=== PATIENT | female | born 1995 | race Caucasian/White ===

== ENCOUNTER → 2019-12-08 16:25 | Outpatient (BNVA) | payer BC, SELFPAY | PROVIDERS: Family Provider Internal Medicine; PCP Family Medicine; Visit Provider Obstetrics & Gynecology | DX: Z30.9 Encounter for contraceptive management, unspecified (principal); Z12.4 Encounter for screening for malignant neoplasm of cervix; Z11.3 Encounter for screening for infections with a predominantly sexual mode of transmission; Z30.433 Encounter for removal and reinsertion of intrauterine contraceptive device | CPT/HCPCS: 86592; 87340; 87491; 87591; 87806; 88175 ==

== ENCOUNTER → 2019-12-09 00:01 | Outpatient (BNVA) | payer BC, SELFPAY | PROVIDERS: Family Provider Internal Medicine; PCP Family Medicine; Visit Provider Obstetrics & Gynecology | DX: Z30.9 Encounter for contraceptive management, unspecified (principal); Z12.4 Encounter for screening for malignant neoplasm of cervix; Z11.3 Encounter for screening for infections with a predominantly sexual mode of transmission; Z30.433 Encounter for removal and reinsertion of intrauterine contraceptive device; B19.20 Unspecified viral hepatitis C without hepatic coma | CPT/HCPCS: 87522 ==

== ENCOUNTER → 2019-12-23 13:43 | Outpatient (BNVA) | payer BC, SELFPAY | PROVIDERS: Family Provider Internal Medicine; PCP Family Medicine; Visit Provider Obstetrics & Gynecology | DX: R87.611 Atypical squamous cells cannot exclude high grade squamous intraepithelial lesion on cytologic smear of cervix (ASC-H) (principal) | CPT/HCPCS: 81025 ==

== ENCOUNTER → 2019-12-24 10:00 | Outpatient (BNVA) | payer BC, OTHER, SELFPAY | PROVIDERS: Family Provider Internal Medicine; PCP Family Medicine; Visit Provider Obstetrics & Gynecology | DX: R87.611 Atypical squamous cells cannot exclude high grade squamous intraepithelial lesion on cytologic smear of cervix (ASC-H) (principal); F17.210 Nicotine dependence, cigarettes, uncomplicated | CPT/HCPCS: 88305 ==

== ENCOUNTER → 2020-10-31 09:35 | Outpatient (BNVA) | payer BC, SELFPAY | PROVIDERS: Family Provider Internal Medicine; PCP Family Medicine; Visit Provider Obstetrics & Gynecology | DX: R87.611 Atypical squamous cells cannot exclude high grade squamous intraepithelial lesion on cytologic smear of cervix (ASC-H) (principal) | CPT/HCPCS: 88175 ==

== ENCOUNTER → 2020-11-08 11:43 | Outpatient (BNVA) | payer BC, SELFPAY | PROVIDERS: Family Provider Internal Medicine; PCP Family Medicine; Visit Provider Obstetrics & Gynecology | DX: R87.611 Atypical squamous cells cannot exclude high grade squamous intraepithelial lesion on cytologic smear of cervix (ASC-H) (principal) | CPT/HCPCS: 81025; 88305 ==

== ENCOUNTER → 2021-01-18 09:10 | Outpatient (BNVA) | payer BC, SELFPAY | PROVIDERS: Family Provider Internal Medicine; PCP Family Medicine; Visit Provider Obstetrics & Gynecology | DX: N87.1 Moderate cervical dysplasia (principal); G89.18 Other acute postprocedural pain | CPT/HCPCS: 81025; 88305; 88307 ==

== ENCOUNTER → 2021-05-24 10:12 | Outpatient (BNVA) | payer BC, SELFPAY | PROVIDERS: Family Provider Internal Medicine; PCP Family Medicine; Visit Provider Nurse Practitioner Women's Health | DX: N92.6 Irregular menstruation, unspecified (principal); N87.1 Moderate cervical dysplasia | CPT/HCPCS: 81025 ==

== ENCOUNTER → 2021-06-06 11:49 | Outpatient (BNVA) | payer BC, SELFPAY | PROVIDERS: Family Provider Internal Medicine; Visit Provider Obstetrics & Gynecology | DX: O09.899 Supervision of other high risk pregnancies, unspecified trimester (principal); Z3A.00 Weeks of gestation of pregnancy not specified | CPT/HCPCS: 80307; 84315; 85027; 86592; 86762; 86803; 86850; 86900; 87086; 87340; 87491; 87522; 87591; 87806 ==

== ENCOUNTER → 2021-07-11 11:26 | Outpatient (BNVA) | payer BC, SELFPAY | PROVIDERS: Family Provider Internal Medicine; Visit Provider Nurse Practitioner Women's Health | DX: O09.899 Supervision of other high risk pregnancies, unspecified trimester (principal); Z3A.00 Weeks of gestation of pregnancy not specified | CPT/HCPCS: 82105; 84315 ==

== ENCOUNTER → 2021-07-21 09:37 | Outpatient (BNVA) | payer BC, SELFPAY | PROVIDERS: Family Provider Internal Medicine; Visit Provider Obstetrics & Gynecology | DX: Z36.86 Encounter for antenatal screening for cervical length (principal); Z98.890 Other specified postprocedural states | CPT/HCPCS: 76817 ==

== ENCOUNTER → 2021-10-02 09:35 | Outpatient (BNVA) | payer BC, SELFPAY | PROVIDERS: Family Provider Internal Medicine; Visit Provider Obstetrics & Gynecology | DX: O09.899 Supervision of other high risk pregnancies, unspecified trimester (principal); Z3A.00 Weeks of gestation of pregnancy not specified | CPT/HCPCS: 82950; 84315; 85027 ==

== ENCOUNTER → 2021-11-27 09:37 | Outpatient (BNVA) | payer BC, SELFPAY | PROVIDERS: Family Provider Internal Medicine; Visit Provider Obstetrics & Gynecology | DX: Z34.90 Encounter for supervision of normal pregnancy, unspecified, unspecified trimester (principal) | CPT/HCPCS: 84315; 87081 ==

== ENCOUNTER 2021-12-15 16:15 | Inpatient (IN) | payer BC, SELFPAY ==
[2021-12-15] VITALS (50 sets, daily range): BP systolic 97–182; BP diastolic 50–122; PULSE 64–100; RESP 16–18; TEMP 36.1–36.8; O2SAT 87–100; BMI 36.4
[2021-12-15 16:09] LABS: Nitrazine Paper, PH Positive
[2021-12-15 16:14] LABS: Basophils % 0.3 %; Eosinophils # 0.1 10^3/uL (0.0-0.8); Eosinophils % 0.6 %; Hemoglobin 11.3 g/dL (11.5-15.3); Lymphocytes # 1.9 10^3/uL (0.8-4.8); Lymphocytes % 18.6 %; Mean Corpuscular HGB Conc 33.2 g/dL (30.0-36.0); Mean Corpuscular Hemoglobin 30.7 pg (28.0-34.0); Mean Corpuscular Volume 92.4 fl (81-99); Mean Platelet Volume 12.4 fL (7.4-10.4); Monocytes # 0.7 10^3/uL (0.2-0.9); Monocytes % 6.3 %; Neutrophils % 73.8 %; Nucleated Red Blood Cells % 0 %; Platelet Count 226 10^3/cmm (130-400); Red Blood Count 3.68 10^6/uL (4.1-5.3); Red Cell Distribution Width 13.2 % (12.1-15.1); White Blood Count 10.3 10^3/uL (4.0-10.0)
[2021-12-15] MEDS: oxytocin 30 UNIT/500 ML BAG IV (18:29)
[2021-12-15] MEDS: dextrose 5%-lactated ringers 1,000 ML 125 ML IV (18:29)
[2021-12-15] MEDS: lactated ringers 1,000 ML 999 ML IV (19:31)
--- NOTE | 2021-12-15 20:41 | ANES.PREANE2 ---
Pre-Anesthetic Assessment Height/Weight: Height 1.65 m Weight 99.337 kg Temp Pulse Resp BP Pulse Ox 97.0 F L 89 18 118/78 99 12/15/21 19:25 12/15/21 20:35 12/15/21 19:25 12/15/21 20:29 12/15/21 20:35 Familial anesthetic complications: None Was Beta Mark taken within 24 hours: N/A Was Clonidine taken within 24 hours: N/A Social No alcohol and No tobacco Exam alert, oriented x 3, clear to auscultation bilaterally and regular rate & rhythm Airway Submandibular: within normal limits Cervical ROM: within normal limits Mallampati: Class II Dentition: full CV/HEM Anemia Hepatic Hepatitis Anesthetic Plan ASA status: 2 Anesthesia: Regional (specify below) (labor epidural) Medications/Allergies Home Medications Medication Instructions Recorded Confirmed Last Taken Type prenat.vits,fouzia,jkn-igsj-yxpps 1 tab PO DAILY 05/24/21 12/15/21 12/15/21 11:00 History ferrous sulfate 325 mg (65 mg 325 mg PO BID #90 tab 10/03/21 12/15/21 12/15/21 11:00 Rx iron) tablet,delayed release breast pump (Pump In Style #1 ea 10/16/21 12/13/21 Unknown Rx Advanced) Allergies Allergy/AdvReac Type Severity Reaction Status Date / Time No Known Allergies Allergy Verified 12/13/21 10:29 Current Medications Generic Name Dose Route Start Last Admin Trade Name Freq PRN Reason Stop Dose Admin Dextrose/Lactated Ringer's 1,000 mls @ 125 mls/hr 12/15/21 16:00 12/15/21 18:29 Dextrose 5%-Lactated Ringers IV 125 mls/hr .Q8H YAMILKA Administration Lactated Ringer's 1,000 mls @ 999 mls/hr 12/15/21 15:54 12/15/21 19:31 Lactated Ringers IV 999 mls/hr .Q1H1M PRN Administration Per L&D Rescitation Protocol Oxytocin 30 unit in 500 mls @ 1 mls/hr 12/15/21 18:15 12/15/21 19:00 Pitocin IV 3 milliunit/min .Q24H YAMILKA 3 mls/hr Titration Protocol 1 MILLIUNIT/MIN Ropivacaine 200 mg in 100 mls @ 13 mls/hr 12/15/21 20:30 12/15/21 20:36 Naropin Premix EPIDURAL 13 mls/hr .Q7H42M YAMILKA Administration [facility] Anesthesia Medical History Cervical intraepithelial neoplasia grade 2 Depression Reports being diagnosed with depression at the age of 14 when she was hospitalized for suicidal ideation. She states that she has been on multiple antidepressants in the past and follows up with [facility]. She was placed on buspirone in her and did well with that. Is currently not taking anything but denies suicidal/homicidal ideation. No pertinent past medical history Denies: Asthma, hypertension, diabetes, seizures, DVT/PE. PMD: Dr. Floyd Unspecified viral hepatitis C without hepatic coma She was diagnosed with hepatitis C in 2018 and thinks it was secondary to an infected tattoo needle. She underwent 12 weeks of treatment under Dr. Floyd and states that she has some lab work and was told that she would be called if it was normal. She assumes she does not need any further follow-up. Surgical History Hx of tympanostomy At age 9 at time of tonsillectomy S/P tonsillectomy and adenoidectomy At age 9 Status post LEEP (loop electrosurgical excision procedure) of cervix 01/18/2021---office LEEP procedure performed for SAKINA-[address] Diallo at [facility] -----> pathology showed SAKINA-2 with negative margins. No malignancy. Post LEEP ECC benign with no dysplasia. Family History Mother Congestive heart failure Thyroid condition Family/Other Breast cancer Maternal aunt, diagnosed before age 50 Grandmother Breast cancer maternal, diagnosed between ages 45-50 Grandfather Heart disease paternal Lung cancer paternal Hypertension maternal Denies family history of Colon cancer Ovarian cancer Diabetes Hyperlipidemia Uterine cancer Stroke Female Reproductive History : 2 Data Anesthesia : 12/15/21 15:50 Short CBC 12/15/21 Range/Units 15:50 WBC 10.3 H (4.0-10.0) 10^3/uL Hgb 11.3 L (11.5-15.3) g/dL Hct 34.0 L (37.0-47.0) % MCV 92.4 (81-99) fl Plt Count 226 (130-400) 10^3/cmm Neut % (Auto) 73.8 % Neut # (Auto) 7.60 (1.8-7.7) 10^3/uL Cardiac Studies: No Data to Display Anesthesia Procedures Epidural Time Out Performed: Yes Consents Signed: Procedure Consent Consent: requested by attending/covering physician, from patient, risks and benefits reviewed and patient agrees to proceed Lumbar Level: L3-L4 Epidural position: sitting Epidural procedure: sterile prep of area, 1% lidocaine to numb the area, 18 g needle, neg for paresthesia, test dose given, 1.5% xylocaine 1:200k epi, placed PCEA, no systemic response, sterile dressing applied and 0.2% Ropiavacaine @ mls/hr (13) Additional Comments: CURT at 5cm, cath at 10cm, bolused 5mls of PF 2% lido
--- NOTE | 2021-12-15 22:08 | PM.OPHPUD ---
Labor & Delivery H&P Update Date of Procedure: December 15, 2021 Date H&P Performed: 12/13/21 H&P update information: I have reviewed H&P completed within last 30 days, I have examined patient prior to procedure and Changes to prior documentation as noted here Changes to previous documentation: The patient had PROM at about 1100 hours this morning. She is having irregular contractions Admission Diagnosis: @39 weeks
--- NOTE | 2021-12-15 22:10 | PM.DELIVERY ---
Delivery Note: Date of delivery: December 15, 2021 Pre-delivery diagnoses: iup at 39 weeks, PROM, Hep C antibody positive, anemia, echogenic foci in heart Post-delivery diagnoses: same-delivered Procedure: Delivering Physician: jennifer Estimated blood loss (mL): 10 Findings: term male in the ADRYAN presentation Pre-Delivery Course: The patient was admitted with PROM and irregular contractions. It had been 6 hours since ROM had occured. Pitocin was started. She had complete cervical dilation and pitocin was stopped. Delivery: The patient had complete cervical dilation and began to push. The head delivered in the ADRYAN position over an intact perineum under epidural anesthesia. The nose and mouth were bulb suctioned. The shoulders and body delivered atraumatically. The baby was placed onto the mother's abdomen. The cord was clamped and cut. Cord blood was obtained. The placenta delivered spontaneously. It was inspected and found to be intact. Inspection of the perineum revealed no repair was required. Estimated blood loss 10 mL. Apgars on baby were 8 at 1 minute and 9 at 5 minutes. Weight of baby is 6 pounds 14 ounces. Mother and baby were stable post delivery. History History History 2 Term 1 Miscarriages/Ectopic 0 0 Living Children 1 Coding Level of Care Code Acute Drill Operator Automatic for Chg Larissa
--- NOTE | 2021-12-15 22:11 | PM.OPHPUD ---
Labor & Delivery H&P Update Date of Procedure: December 15, 2021 Date H&P Performed: 12/13/21 Admission Diagnosis: Related Problem List Diagnoses (1) Anemia affecting in third trimester: (2) Echogenic intracardiac focus of fetus on ultrasound: (3) Unspecified viral hepatitis C without hepatic coma: (4) Supervision of other high-risk :
[2021-12-16] VITALS (19 sets, daily range): BP systolic 91–115; BP diastolic 50–74; PULSE 61–116; RESP 16–40; TEMP 36.4–36.9; O2SAT 96
[2021-12-16] MEDS: lanolin oint 7 gm 1 APPLIC TOPICAL (03:01)
[2021-12-16] MEDS: benzocaine-menthol 78 gm Canister 1 SPRAY TOPICAL (03:01)
--- NOTE | 2021-12-16 07:56 | PM.PN ---
Subjective Subjective: The patient is doing well this morning. No concerns Vitals/I&O/Wt Last Vital Signs Temp 97.5 F L 12/16/21 05:53 Pulse 61 12/16/21 05:32 Resp 17 12/16/21 05:53 BP 109/68 12/16/21 05:32 Pulse Ox 89 L 12/15/21 21:11 12/15/21 12/16/21 12/16/21 22:59 06:59 14:59 Intake Total 1484.317 / 9062.864 8009.683 / 2600.000 Output Total 1700 / 1700 Balance 1484.317 / 1484.317 -584.317 / 900.000 Weight last 48 hrs Weight 219 lb Physical Exam Const: COMMON NORMALS: no acute distress, patient oriented x3, no limitations, healthy appearing and alert GENERAL APPEARANCE: cooperative, comfortable, well kempt and well developed ORIENTATION/CONSCIOUSNESS: Yes awake, Yes oriented to person, Yes oriented to place and Yes oriented to time Resp: COMMON NORMALS: normal respiratory effort EFFORT & INSPECTION: Yes able to speak in complete sentences GI: COMMON NORMALS: Soft to palpation and non-tender PALPATION: Yes Soft to palpation Extremity: COMMON NORMALS: no calf tenderness Neuro: COMMON NORMALS: patient oriented x3 SENSORIUM/ORIENTATION: Yes alert, Yes oriented to person, Yes oriented to place and Yes oriented to time Psych: APPEARANCE: Yes well kempt Data : 12/15/21 15:50 Attestations Medical Necessity Statement*: The patient had a vaginal delivery. she will be here two midnights Coding Level of Care Code Acute Director Food And Beverage for Brian Dias
--- NOTE | 2021-12-16 08:37 | ANE.PACU2 ---
Inpatient post-anesthesia follow up: Airway intact: Yes Vital signs: Temperature 97.5 F Pulse Rate 61 Respiratory Rate 17 Blood Pressure 109/68 Pulse Oximetry 89 Oxygen Delivery Me thod Room Air Oxygen Flow Rate Fraction of Inspir ed Oxygen Hydration adequate: Yes Nausea and vomiting: No Pain level: 2 Mental status: Baseline
[2021-12-16] MEDS: ibuprofen 800 mg tablet PO ×3 (09:17→22:02)
[2021-12-16] MEDS: prenatal vitamin Capsule 1 CAP PO (09:17)
[2021-12-16] MEDS: docusate sodium 100 mg Capsule PO ×2 (09:17→17:07)
[2021-12-16 11:21] LABS: Hematocrit 32.2 % (37.0-47.0); Hemoglobin 10.6 g/dL (11.5-15.3); Mean Corpuscular HGB Conc 32.9 g/dL (30.0-36.0); Mean Corpuscular Hemoglobin 30.6 pg (28.0-34.0); Mean Corpuscular Volume 93.1 fl (81-99); Mean Platelet Volume 12.2 fL (7.4-10.4); Platelet Count 204 10^3/cmm (130-400); Red Blood Count 3.46 10^6/uL (4.1-5.3); Red Cell Distribution Width 13.4 % (12.1-15.1); White Blood Count 12.1 10^3/uL (4.0-10.0)
[2021-12-17 05:11] VITALS: BP 99/65; PULSE 69; RESP 15; TEMP 36.6
[2021-12-17 09:00] VITALS: BP 100/62; PULSE 69; RESP 15; TEMP 36.7
[2021-12-17] MEDS: prenatal vitamin Capsule 1 CAP PO (09:44)
[2021-12-17] MEDS: ibuprofen 800 mg tablet PO (09:44)
[2021-12-17] MEDS: docusate sodium 100 mg Capsule PO (09:45)
--- NOTE | 2021-12-17 11:49 | PM.DCS ---
Discharge Providers Date of Admission: 12/15/21 16:15 Date of Discharge: December 17, 2021 Attending Provider at Admission: Kina Doty MD Attending Provider at Discharge: Kina Doty MD Diagnoses at Discharge Discharge Diagnosis (1) Anemia affecting in third trimester: Status: Acute (2) Echogenic intracardiac focus of fetus on ultrasound: Status: Acute (3) Unspecified viral hepatitis C without hepatic coma: Status: Resolved Permanent problem details: She was diagnosed with hepatitis C in 2018 and thinks it was secondary to an infected tattoo needle. She underwent 12 weeks of treatment under Dr. Floyd and states that she has some lab work and was told that she would be called if it was normal. She assumes she does not need any further follow-up. (4) Supervision of other high-risk : Status: Acute Reason for Visit Reason for Visit: Possible ROM Hospital Course Hospital Course The patient was admitted for PROM. She had augmentation of labor. She had spontaneous delivery of a term male . She did well and was ready for discharge on day #2 Physical Exam Narrative: doing well this morning. No concerns Const: COMMON NORMALS: no acute distress, patient oriented x3, no limitations, healthy appearing, alert and well nourished GENERAL APPEARANCE: cooperative, comfortable, well kempt and well developed ORIENTATION/CONSCIOUSNESS: Yes awake, Yes oriented to person, Yes oriented to place and Yes oriented to time Resp: COMMON NORMALS: normal respiratory effort EFFORT & INSPECTION: Yes able to speak in complete sentences GI: COMMON NORMALS: Soft to palpation and non-tender PALPATION: Yes Soft to palpation Extremity: COMMON NORMALS: no calf tenderness Neuro: COMMON NORMALS: patient oriented x3 SENSORIUM/ORIENTATION: Yes alert, Yes oriented to person, Yes oriented to place and Yes oriented to time Psych: APPEARANCE: Yes well kempt Discharge Data Studies Completed and Pending Laboratory Results WBC 12.1 10^3/uL (4.0-10.0) H 12/16/21 11:00 RBC 3.46 10^6/uL (4.1-5.3) L 12/16/21 11:00 Hgb 10.6 g/dL (11.5-15.3) L 12/16/21 11:00 Hct 32.2 % (37.0-47.0) L 12/16/21 11:00 MCV 93.1 fl (81-99) 12/16/21 11:00 MCH 30.6 pg (28.0-34.0) 12/16/21 11:00 MCHC 32.9 g/dL (30.0-36.0) 12/16/21 11:00 RDW 13.4 % (12.1-15.1) 12/16/21 11:00 Plt Count 204 10^3/cmm (130-400) 12/16/21 11:00 MPV 12.2 fL (7.4-10.4) H 12/16/21 11:00 Neut % (Auto) 73.8 % 12/15/21 15:50 Lymph % (Auto) 18.6 % 12/15/21 15:50 [place] % (Auto) 6.3 % 12/15/21 15:50 Eos % (Auto) 0.6 % 12/15/21 15:50 Baso % (Auto) 0.3 % 12/15/21 15:50 Neut # (Auto) 7.60 10^3/uL (1.8-7.7) 12/15/21 15:50 Lymph # (Auto) 1.9 10^3/uL (0.8-4.8) 12/15/21 15:50 [place] # (Auto) 0.7 10^3/uL (0.2-0.9) 12/15/21 15:50 Eos # (Auto) 0.1 10^3/uL (0.0-0.8) 12/15/21 15:50 Baso # (Auto) 0.0 10^3/uL (0.0-0.1) 12/15/21 15:50 Nucleated RBC % (auto) 0 % 12/15/21 15:50 Nucleated RBCs # 0.0 /100WBC 12/15/21 15:50 Vitals Last Vital Signs Temp 98.0 F 12/17/21 09:00 Pulse 69 12/17/21 09:00 Resp 15 12/17/21 09:00 BP 100/62 12/17/21 09:00 Pulse Ox 96 12/16/21 23:10 Discharge Plan Discharge Patient Disposition: Home Condition: Stable Prescriptions: Continued prenat.vits,fouzia,[id number] Tablet 1 tab PO DAILY 0RF (DME) breast pump [Pump In Style Advanced] Device See Rx Instructions .ROUTE .MEDSUPPLY Qty: 1 0RF Rx Instructions: As directed ferrous sulfate 325 mg (65 mg iron) tablet,delayed release (DR/EC) 325 mg PO BID Qty: 90 2RF Discharge Orders: Discharge Order (Routine); Ordered 12/17/21 Ordered By: Kina Doty Patient Instructions: Depression (DC), Bleeding (DC), Preeclampsia and Eclampsia After Delivery (GEN), OB Discharge Report, OB Food/Drug Interaction Guide, Opioid Safety, OB Home Care, OB Vaginal Deliveries - [facility] Discharge Attestations Time Spent in Discharge Care*: less than 30 min Quality Metrics Clinical Quality Measures [ No reported AMI, CVA or VTE this stay] Coding Level of Care Code Acute Chg FW DC note Diagnoses Anemia affecting in third trimester O99.013 Echogenic intracardiac focus of fetus on ultrasound O28.3 Unspecified viral hepatitis C without hepatic coma B19.20 Supervision of other high-risk O09.899
[2021-12-17 13:02] VITALS: BP 135/71; PULSE 82; RESP 15; TEMP 36.7
== END 2021-12-17 13:03 | disposition home or self-care (01) | DRG 807 ==
LOC: OPOB 21:58 → OBGYN 21:58
PROVIDERS: Admitting Provider Obstetrics & Gynecology; Visit Provider Obstetrics & Gynecology
DX: O99.02 Anemia complicating childbirth (principal); Z37.0 Single live birth; D64.9 Anemia, unspecified; O99.344 Other mental disorders complicating childbirth; F32.A Depression, unspecified; Z3A.39 39 weeks gestation of pregnancy; Z86.19 Personal history of other infectious and parasitic diseases; Z87.891 Personal history of nicotine dependence
CPT/HCPCS: 36415; 59025; 59409; 83986; 85025; 85027; 98960; 99211; J2795

== ENCOUNTER → 2022-01-22 15:19 | Outpatient (BNVA) | payer BC, SELFPAY | PROVIDERS: Visit Provider Obstetrics & Gynecology | DX: Z12.4 Encounter for screening for malignant neoplasm of cervix (principal) | CPT/HCPCS: 88175 ==

== ENCOUNTER → 2022-12-17 09:58 | Outpatient (BNVA) | payer BC, SELFPAY | PROVIDERS: PCP Family Medicine; Visit Provider Nurse Practitioner Family | DX: R30.0 Dysuria (principal) | CPT/HCPCS: 81000 ==

== ENCOUNTER → 2023-01-09 15:00 | Outpatient (BNVA) | payer BC, SELFPAY | PROVIDERS: PCP Family Medicine; Visit Provider Obstetrics & Gynecology | DX: Z12.4 Encounter for screening for malignant neoplasm of cervix (principal) | CPT/HCPCS: 87624 ==

== ENCOUNTER → 2023-02-12 14:00 | Outpatient (BNVA) | payer BC, SELFPAY | PROVIDERS: PCP Family Medicine; Visit Provider Obstetrics & Gynecology | DX: Z32.00 Encounter for pregnancy test, result unknown (principal) | CPT/HCPCS: 81025 ==

== ENCOUNTER → 2023-02-27 09:29 | Outpatient (BNVA) | payer BC, SELFPAY | PROVIDERS: PCP Family Medicine; Visit Provider Obstetrics & Gynecology | DX: Z34.80 Encounter for supervision of other normal pregnancy, unspecified trimester (principal) | CPT/HCPCS: 76801; 80307; 84315; 87086 ==

== ENCOUNTER → 2023-03-26 14:20 | Outpatient (BNVA) | payer BC, SELFPAY | PROVIDERS: PCP Family Medicine; Visit Provider Obstetrics & Gynecology | DX: Z34.80 Encounter for supervision of other normal pregnancy, unspecified trimester (principal) | CPT/HCPCS: 80307; 84315; 85027; 86592; 86762; 86803; 86850; 86900; 87086; 87340; 87522; 87806 ==

== ENCOUNTER → 2023-04-17 10:34 | Outpatient (BNVA) | payer BC, SELFPAY | PROVIDERS: PCP Family Medicine; Visit Provider Nurse Practitioner Women's Health | DX: Z34.80 Encounter for supervision of other normal pregnancy, unspecified trimester (principal) | CPT/HCPCS: 84315; 87491; 87591; 88175 ==

== ENCOUNTER → 2023-05-14 14:05 | Outpatient (BNVA) | payer BC, SELFPAY | PROVIDERS: PCP Family Medicine; Visit Provider Nurse Practitioner Women's Health | DX: Z34.92 Encounter for supervision of normal pregnancy, unspecified, second trimester (principal); Z3A.21 21 weeks gestation of pregnancy | CPT/HCPCS: 76801 ==

== ENCOUNTER → 2023-07-10 13:41 | Outpatient (BNVA) | payer BC, SELFPAY | PROVIDERS: PCP Family Medicine; Visit Provider Obstetrics & Gynecology | DX: Z34.80 Encounter for supervision of other normal pregnancy, unspecified trimester (principal) | CPT/HCPCS: 82950; 84315; 85025 ==

== ENCOUNTER → 2023-09-04 13:51 | Outpatient (BNVA) | payer BC, SELFPAY | PROVIDERS: PCP Family Medicine; Visit Provider Obstetrics & Gynecology | DX: Z34.80 Encounter for supervision of other normal pregnancy, unspecified trimester (principal) | CPT/HCPCS: 84315; 87081 ==

== ENCOUNTER 2023-09-26 08:39 | Inpatient (IN) | payer BC, SELFPAY ==
[2023-09-26] VITALS (14 sets, daily range): BP systolic 102–134; BP diastolic 60–87; PULSE 70–83; RESP 15–16; TEMP 36.8–37.6; O2SAT 95–96; BMI 35.5
--- NOTE | 2023-09-26 08:51 | PM.DELIVERY ---
Delivery Note: Date of delivery: September 26, 2023 Pre-delivery diagnoses: Term Post-delivery diagnoses: Term delivered Procedure: Spontaneous vaginal Delivering Physician: Manuel Barajas MD Estimated blood loss (mL): 300 Delivery: The patient was noted to be complete and pushing, when she arrived to labor and delivery nunn. She was immediately brought to a delivery room. At [time] the patient delivered a viable term female weighing 3640 g with scores of 8 and 9 at one and five minutes, respectively. The vertex was delivered spontaneously over intact perineum. A nuchal cord was noted by nurse and delivered through it. Meconium was noted. The infant was noted to have spontaneous cry and spontaneous movement of all four extremities. The cord was clamped x 2 and cut and noted to have 2 arteries and one vein. The was passed to the mother's abdomen where nursing personnel were in attendance. Cord blood sample was then obtained. The placenta delivered intact spontaneously and the uterus was explored. 20 units of Pitocin was placed in the IV bag to firm the uterus. Examination of the cervix and vaginal vault did not reveal any lacerations. A vaginal pack was then placed. Examination of the perineum showed no laceration. The vaginal pack was then removed. The patient tolerated this procedure well, and recovered in L&D with her in their LDR room. All sponge and needle counts were correct. History History History 3 Term 2 0 Miscarriages/Ectopic 0 Living Children 2 A&P Assessment and plan (1) Term delivered: Plan and observation Coding Level of Care Code Acute Code for Chg Fwd Diagnoses Term delivered O80
[2023-09-26 10:04] LABS: Basophils % 0.2 %; Eosinophils # 0.1 10^3/uL (0.0-0.8); Eosinophils % 0.6 %; Hematocrit 33.9 % (36-47); Lymphocytes % 34.7 %; Mean Corpuscular HGB Conc 33.3 g/dL (30-55); Mean Corpuscular Hemoglobin 29.6 pg (27-33); Mean Corpuscular Volume 88.7 fl (85-98); Mean Platelet Volume 12.5 fL (7.4-10.4); Monocytes # 0.5 10^3/uL (0.2-0.9); Monocytes % 5.6 %; Neutrophils # 5.06 10^3/uL (1.8-7.7); Neutrophils % 58.1 %; Nucleated Red Blood Cells % 0 %; Platelet Count 231 10^3/cmm (157-399); Red Blood Count 3.82 10^6/uL (3.85-5.65); Red Cell Distribution Width 13.4 % (12.1-15.1); White Blood Count 8.72 10^3/uL (3.29-11.43)
--- NOTE | 2023-09-26 12:28 | PC.NURSE ---
This nurse was notified by registration that there was a patient in the parking lot that was pushing. This nurse arrived in the ER parking lot, patient was kneeling in a wheelchair that her was pushing towards the door, patients stated that her water had broke in the parking lot and was struggling not to push. Fluid was observed on patients pants and she verbalized that she needed to push. This nurse encouraged patient to continue to breathe and try to not push. We were met at the [facility] door by Dashawn Randall RN and proceeded to labor room. Patient transferred to the labor bed, was assisted to remove her pants, small crown was noted, Dashawn Randall RN verbally requested that the MD be notified, Ender Arauz RN proceeded to call Dr. Barajas, Patient stated that she needed to push, was encouraged to breathe and relax through the contractions. Dashawn Randall attempted to doppler FHTs, mother again stated that she was pushing and large crown was noted. Patient again bared down and infant head was delivered. Dashawn Randall noted nucal cord that was able to be reduced, then instructed patient to push, was delivered and placed on mothers abdomen
[2023-09-26] MEDS: ibuprofen 800 mg tablet PO ×2 (14:58→20:53)
[2023-09-26] MEDS: benzocaine-menthol 78 gm Canister 1 SPRAY TOPICAL (20:52)
[2023-09-26] MEDS: docusate sodium 100 mg Capsule PO (20:53)
[2023-09-26 21:12] LABS: Hematocrit 30.7 % (36-47); Mean Corpuscular HGB Conc 32.9 g/dL (30-55); Mean Corpuscular Hemoglobin 29.4 pg (27-33); Mean Corpuscular Volume 89.2 fl (85-98); Mean Platelet Volume 12.2 fL (7.4-10.4); Platelet Count 216 10^3/cmm (157-399); Red Blood Count 3.44 10^6/uL (3.85-5.65); Red Cell Distribution Width 13.4 % (12.1-15.1); White Blood Count 10.57 10^3/uL (3.29-11.43)
[2023-09-27 02:30] VITALS: BP 103/65; PULSE 75; RESP 16; TEMP 36.9; O2SAT 96
[2023-09-27 04:15] VITALS: BP 126/85; PULSE 65; RESP 16; TEMP 36.7; O2SAT 97
[2023-09-27] MEDS: lanolin oint 7 gm 1 APPLIC TOPICAL (04:32)
--- NOTE | 2023-09-27 09:37 | PM.OBGYPN ---
PUBLIC RELATIONS ACCOUNT EXECUTIVE Subjective Subjective: Interval history: no c/o no bleeding, pain eating, voiding, ambulating well caring for without any problems Labor: Amniotic Membrane Status: Ruptured Vitals/I&O/Wt Last Vital Signs Temp 98.1 F 09/27/23 04:15 Pulse 65 09/27/23 04:15 Resp 16 09/27/23 04:15 BP 126/85 09/27/23 04:15 Pulse Ox 97 09/27/23 04:15 O2 Del Method Room Air 09/27/23 04:15 Weight last 48 hrs Weight 220 lb Physical Exam Narrative: afebrile, VS normal comfortable, awake, alert Abd: soft, nontender. fundus firm Ext: no edema; nontender Data 09/26/23 20:40 A&P Assessment and plan (1) Vaginal delivery: PPD #1 vaginal delivery doing well discharge to home today instructions and precautions given call/return if fever, chills, headache, blurry vision, nausea, vomiting, abdominal pain; vaginal bleeding or discharge; shortness of breath, chest pain, leg pains or swelling; inability to void, perineal pain or swelling; feelings of depression or mood changes; thoughts of suicide or harming others; inability to care for baby. f/u in 6 weeks or PRN Attestations Medical Necessity Statement*: patient s/p vaginal delivery, plan to discharge to home today Coding Level of Care Code Acute Code for Chg Fwd Diagnoses Vaginal delivery O80 Time Spent (min) 20
--- NOTE | 2023-09-27 09:39 | P.DS_ITS ---
Discharge Providers SIGN WRITER LETTERER OR PAINTER Date of Admission: 09/26/23 08:39 Date of Discharge: 09/27/23 Attending Provider at Admission: Manuel Barajas MD Attending Provider at Discharge: Manuel Barajas MD Consults: none Primary SIGN WRITER LETTERER OR PAINTER: Chadwick Boykin MD Primary Care Provider: Day Reyna DO Diagnoses at Discharge Discharge Diagnosis (1) Vaginal delivery: Details from hospital stay: patient delivered outside in parking lot on arrival to hospital had normal course plan to discharge to home on PPD #1 Status: Acute Reason for Visit Reason for Visit: ROM Brief History: 28 y.o. at term with painful uterine con tractions Hospital Course Hospital Course patient delivered outside in parking lot on arrival to hospital had normal course plan to discharge to home on PPD #1 Information Peripartum Data: Infant Delivery Method: Vaginal Episiotomy description: None complications: none Physical Exam Narrative: afebrile, VS normal comfortable, awake, alert Abd: soft, nontender. fundus firm Ext: no edema; nontender History History History 3 Term 2 0 Miscarriages/Ectopic 0 Living Children 2 Discharge Data Studies Completed and Pending Laboratory Results WBC 10.57 10^3/uL (3.29-11.43) 09/26/23 20:40 RBC 3.44 10^6/uL (3.85-5.65) L 09/26/23 20:40 Hgb 10.10 g/dL (11.27-16.99) L 09/26/23 20:40 Hct 30.7 % (36-47) L 09/26/23 20:40 MCV 89.2 fl (85-98) 09/26/23 20:40 MCH 29.4 pg (27-33) 09/26/23 20:40 MCHC 32.9 g/dL (30-55) 09/26/23 20:40 RDW 13.4 % (12.1-15.1) 09/26/23 20:40 Plt Count 216 10^3/cmm (157-399) 09/26/23 20:40 MPV 12.2 fL (7.4-10.4) H 09/26/23 20:40 Neut % (Auto) 58.1 % 09/26/23 08:40 Lymph % (Auto) 34.7 % 09/26/23 08:40 [place] % (Auto) 5.6 % 09/26/23 08:40 Eos % (Auto) 0.6 % 09/26/23 08:40 Baso % (Auto) 0.2 % 09/26/23 08:40 Neut # (Auto) 5.06 10^3/uL (1.8-7.7) 09/26/23 08:40 Lymph # (Auto) 3.0 10^3/uL (0.8-4.8) 09/26/23 08:40 [place] # (Auto) 0.5 10^3/uL (0.2-0.9) 09/26/23 08:40 Eos # (Auto) 0.1 10^3/uL (0.0-0.8) 09/26/23 08:40 Baso # (Auto) 0.0 10^3/uL (0.0-0.1) 09/26/23 08:40 Nucleated RBC % (auto) 0 % 09/26/23 08:40 Nucleated RBCs # 0.0 /100WBC 09/26/23 08:40 Blood Type A Positive 09/26/23 08:40 Rho(D) Type Rh positive 09/26/23 08:40 Antibody Screen Negative 09/26/23 08:40 Procedures Performed vaginal delivery care Vitals Last Vital Signs Temp 98.1 F 09/27/23 04:15 Pulse 65 09/27/23 04:15 Resp 16 09/27/23 04:15 BP 126/85 09/27/23 04:15 Pulse Ox 97 09/27/23 04:15 O2 Del Method Room Air 09/27/23 04:15 Results Labs OB ([facility]): Obstetrics US 12/04/21 Blood Type A Positive 09/26/23 Antibody Screen Negative 09/26/23 Hct 30.7 % (36-47) L 09/26/23 Hgb 10.10 g/dL (11.27-16.99) L 09/26/23 Rho(D) Type Rh positive 09/26/23 Plt Count 216 10^3/cmm (157-399) 09/26/23 Hep Bs Antigen Non-reactive (Nonreactive) 03/26/23 Hepatitis C Antibody Reactive (Nonreactive) H 03/26/23 Rubella IgG Antibody 26.0 IU/mL (0.0-10.0) H 03/26/23 RPR Nonreactive (Nonreactive) 03/26/23 HIV 1&2 Ab & HIV 1 Ag Non-reactive (Non-Reactiv) 03/26/23 C.trachomatis RNA (TMA) Not detected (NOT DETECTED) N.gonorrhoeae RNA (TMA) Not detected (NOT DETECTED) T. vaginalis Amp RNA Not detected (NOT DETECTED) 04/17/23 Chlamydia/GC Comment See note 04/17/23 Gest Glucose Tolerance 85 mg/dL (70-139) 07/10/23 HCG, Qual Positive (Negative) H 02/12/23 Urine Opiates Screen Negative ng/mL (Negative) 03/26/23 Ur Barbiturates Screen Negative ng/mL (Negative) 03/26/23 Ur Phencyclidine Scrn Negative ng/mL (Negative) 03/26/23 Ur Amphetamines Screen Negative ng/mL (Negative) 03/26/23 U Benzodiazepines Scrn Negative ng/mL (Negative) 03/26/23 Urine Cocaine Screen Negative ng/mL (Negative) 03/26/23 U Marijuana (THC) Screen Negative ng/mL (Negative) 03/26/23 Micro Urine Specimen 03/26/23 Pap Smear Interpret See note 04/17/23 Discharge Plan Discharge Patient Disposition: Home Condition: Stable Prescriptions: Continued folic acid 1 mg tablet 1 mg PO DAILY prenat.vits,fouzia,wnm-bsga-sjptr Tablet 1 tab PO DAILY cholecalciferol (vitamin D3) 10 mcg (400 unit) capsule 10 mcg PO DAILY Discharge Orders: Discharge Order (Routine); Ordered 09/27/23 Ordered By: Chadwick Boykin Discharge Diet: Usual diet Discharge Activity: Resume usual activity Patient Instructions: Depression (DC), Bleeding (DC), Preeclampsia and Eclampsia After Delivery (GEN), Hemorrhage (DC), OB Discharge Report, OB Food/Drug Interaction Guide, Opioid Safety, OB Home Care, OB [facility] Parent Packet, OB Vaginal Deliveries - [facility], Abnormal Bleeding Discharge Attestations SIGN WRITER LETTERER OR PAINTER Time Spent in Discharge Care*: less than 30 min Coding Level of Care Code Acute Code for Chg Fwd Diagnoses Vaginal delivery O80 Time Spent (min) 20
[2023-09-27] MEDS: docusate sodium 100 mg Capsule PO (09:42)
[2023-09-27] MEDS: prenatal vitamin Capsule 1 CAP PO (09:42)
[2023-09-27] MEDS: ibuprofen 800 mg tablet PO (09:42)
[2023-09-27 09:44] VITALS: BP 111/73; PULSE 84; RESP 17
[2023-09-27 11:15] VITALS: BP 115/73; PULSE 83; RESP 17; TEMP 36.7
[2023-09-27 11:20] VITALS: BP 115/73; PULSE 83; RESP 17; TEMP 36.7
== END 2023-09-27 11:30 | disposition home or self-care (01) | DRG 807 ==
LOC: OPOB 08:39 → OBGYN 08:39
PROVIDERS: Admitting Provider Obstetrics & Gynecology; PCP Family Medicine; Visit Provider Obstetrics & Gynecology
DX: O69.81X0 Labor and delivery complicated by cord around neck, without compression, not applicable or unspecified (principal); Z37.0 Single live birth; Z3A.39 39 weeks gestation of pregnancy; O77.0 Labor and delivery complicated by meconium in amniotic fluid
CPT/HCPCS: 36415; 59409; 85025; 85027; 86850; 86900; 99211

== ENCOUNTER → 2024-08-28 14:59 | Outpatient (BNVA) | payer BC, SELFPAY | PROVIDERS: PCP Family Medicine Adult Medicine; Visit Provider Family Medicine | DX: D50.0 Iron deficiency anemia secondary to blood loss (chronic) (principal); F90.0 Attention-deficit hyperactivity disorder, predominantly inattentive type | CPT/HCPCS: 80053; 82728; 83550; 84439; 84443; 85025 ==

== ENCOUNTER → 2025-04-20 11:54 | Outpatient (BNVA) | payer BC, SELFPAY | PROVIDERS: PCP Family Medicine; Visit Provider Family Medicine | DX: D50.0 Iron deficiency anemia secondary to blood loss (chronic) (principal) | CPT/HCPCS: 82728; 83550; 85025 ==

== ENCOUNTER 2025-06-09 11:00 | Outpatient (CLI) | payer SELFPAY | END 2025-06-09 11:01 | disposition home or self-care (01) | LOC: SLEEP 06-10 09:32 | PROVIDERS: PCP Family Medicine; Referring Provider Family Medicine; Visit Provider Internal Medicine Pulmonary Disease | DX: G47.30 Sleep apnea, unspecified (principal) | CPT/HCPCS: G0399 ==